=== PATIENT | female | born 1930 | race Caucasian/White ===

== ENCOUNTER 2016-02-25 12:05 | Observation (INO) | payer MEDICARE, OTHER ==
[~2016-02-25] VITALS: Ht 144.8 cm; Wt 56.0 kg
[~2016-02-25 12:05] MED LIST: ASP81 PO; BACTDS PO; CLON-379 PO; CLON1PAT17 TD; DOCU-159 PO; IBUP-1542 PO; LEVO75TA75 PO; LORA0.5T PO; LOSA100T7 PO; MOME13HF INH; NITR-58 PO; PHEN-537 PO; POLY17PO6 PO; SODI1TAB42 PO; ZOC20 PO
[2016-02-25] MEDS ORDERED: SOD CHLORIDE 0.9% 1,000 ML IV STA (12:52)
[2016-02-25 13:14] LABS: BASOPHILS % 0.3 % (0.0-2.0); EOSINOPHILS % 0.2 % (0.0-7.0); HEMATOCRIT 33.6 % (37.0-47.0); HEMOGLOBIN 11.1 g/dl (12.0-16.0); LYMPHOCYTES # 1.4 10^3/ul (0.8-2.9); LYMPHOCYTES % 24.6 % (15.0-51.0); MEAN CORPUSCULAR HEMOGLOBIN 28.8 pg (29.0-33.0); MEAN CORPUSCULAR HGB CONC 33.1 g/dl (32.0-37.0); MEAN PLATELET VOLUME 8.5 fl (7.4-10.4); MONOCYTE # 0.7 10^3/ul (0.3-0.9); MONOCYTES % 11.4 % (0.0-11.0); NEUTROPHIL # 3.7 10^3/ul (1.6-7.5); NEUTROPHILS % 63.5 % (39.0-77.0); PLATELET COUNT 226 10^3/UL (140-440); RED BLOOD COUNT 3.86 10^6/ul (4.20-5.40); RED CELL DISTRIBUTION WIDTH 13.6 % (11.5-14.5); UNCORRECTED WBC 5.8 10^3/ul (4.8-10.8); WHITE BLOOD COUNT 5.8 10^3/ul (4.8-10.8)
[2016-02-25 13:16] LABS: CONDITION 1
[2016-02-25 13:21] LABS: ALBUMIN 4.4 g/dl (3.3-4.9); CHLORIDE 99 mmol/L (97-110)
--- NOTE | 2016-02-25 13:21 | RADRPT ---
PROCEDURE: XR Chest 1 View. CLINICAL INDICATION: Shortness of breath, altered mental status. TECHNIQUE: AP view of the chest were obtained. COMPARISON: November 29, 2014 FINDINGS: Heart is large. Calcified atherosclerosis is noted in the aorta. Lung apices are obscured by the pa tient's overlying chin. No consolidations are identified. No pneumothorax is seen. Osseous structu res are osteopenic, but grossly intact. IMPRESSION: Cardiomegaly with calcified atherosclerosis in the aorta. Limited exam with the lung apices obscured by the patient's overlying chin. Repeat exam with the ch in elevated can be considered. Clear lungs. RPTAT: AA .Jose Mercado MD, MD Date Time Electronically viewed and signed by .Jose Mercado MD, on 02/25/2016 13:20 .P/
[2016-02-25 13:22] LABS: POTASSIUM 4.2 mmol/L (3.5-5.1); SODIUM 141 mmol/L (135-144)
[2016-02-25 13:22] LABS: Allen Test ACCEPTAB; Arterial Base Excess -0.4 mmol/L (-3.0-3); Arterial COHb 0.3 % (0.0-3.0); Arterial Fraction of Oxyhgb 99.1 % (93.0-99.0); Arterial HCO3 23.5 mmol/L (22.0-26.0); Arterial MetHb 0.1 % (0.0-1.5); Arterial Total Hemglobin 11.4 g/dl (12.0-18.0); MODE MASK - NRB
[2016-02-25 13:24] LABS: ALANINE AMINOTRANSFERASE 27 IU/L (13-69); ALBUMIN/GLOBULIN RATIO 1.22; ALKALINE PHOSPHATASE 87 IU/L (42-121); ANION GAP 18 (8-16); ASPARTATE AMINO TRANSFERASE 32 IU/L (15-46); BILIRUBIN,INDIRECT 0.2 mg/dl (0-1.1); BILIRUBIN,TOTAL 0.2 mg/dl (0.2-1.3); BLOOD UREA NITROGEN 17 mg/dl (7-20); CARBON DIOXIDE 28 mmol/L (21-31); CREATININE 1.17 mg/dl (0.44-1.00); GLUCOSE 90 mg/dl (70-220)
[2016-02-25 13:25] LABS: CALCIUM 9.3 mg/dl (8.4-10.2); LACTIC ACID 1.4 mmol/L (0.5-2.2)
[2016-02-25 13:26] LABS: ACETAMINOPHEN < 10.0 ug/ml (10.0-30.0); AMMONIA < 0 umol/l (9-30); ETHANOL < 10.0 mg/dl; SALICYLATE < 1.0 mg/dl (5.0-30.0)
[2016-02-25 13:36] LABS: TROPONIN-I 0.036 ng/ml (0.00-0.12)
[2016-02-25 13:41] LABS: INR 1.01; PARTIAL THROMBOPLASTIN TIME 25.3 Sec (25.0-35.0); PROTIME 13.3 Sec (12.2-14.2)
--- NOTE | 2016-02-25 13:48 | RADRPT ---
PROCEDURE: CT Brain without contrast. CLINICAL INDICATION: Neurologic deficit TECHNIQUE: A CT of the brain was performed on multidetector high-resolution CT scanner utilizing a xial sections from the skull base through the vertex without contrast. DOSE: CTDI = 44 mGy and the DLP = 720 mGy-cm. COMPARISON: Head CT 06/22/2014 FINDINGS: No acute intracranial hemorrhage, significant mass effect or midline shift. Patchy hypoattenuation o f the cerebral white matter is most consistent with mildchronic microvascular ischemic changes. 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 Atherosclerotic calcifications of the cavernous segments of the internal carotid arteries are seen. Stable ventricle size. Old right orbital fractures. No signific ant opacification of the visualized paranasal sinuses or mastoids. IMPRESSION: No significant interval change since 06/22/2014. No acute intracranial hemorrhage or significant mass effect. 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 RPTAT: AA .Nash Lilly MD, MD Date Time Electronically viewed and signed by .Nash Lilly MD, MD on 02/25/2016 13:48 .T/
--- NOTE | 2016-02-25 13:52 | ERA ---
ER Documentation Chief Complaint Date/Time DATE: 02/25/16 TIME: 1252 Chief Complaint Pt fainted and lost consciousness for 2 minutes per daughter, no trauma. HPI 85-year-old female brought to the emergency department by her family for evaluation of generalized weakness and syncopal episode. According to the family, patient was in her usual state of health until this morning at which time she had a generalized weakness. She passed out with no focal weakness noted. The paramedics were called to the home. They saw the patient and the patient was transported here to the emergency department. While in triage, the patient had another syncopal episode. At that time, she reported no headache, focal weakness numbness chest pain or palpitations. Upon arrival, she has no specific complaints ROS All systems reviewed and are negative except as per history of present illness. Medications Home Meds Active Scripts Sulfamethoxazole-Trimethoprim* (Bactrim* DS) 800-160 Mg Tab, 1 TAB PO BID, #14 TAB Prov:SERAFIN HUBER 05/16/15 Polyethylene Glycol* (Miralax*) 17 Gm Powd.pack, 17 GM PO DAILY, #7 Prov:SHILPAFLOR DO 05/16/15 Ibuprofen* (Motrin*) 600 Mg Tab, 600 MG PO Q6H Y for PAIN AND OR ELEVATED TEMP, #14 TAB Prov:FLOR MASSEY DO 05/16/15 Sodium Chloride* (Nacl*) 1 Gm Tab, 1 GM PO DAILY, #7 TAB Prov:NICK STEINER 12/03/14 Aspirin (Aspirin) 81 Mg Chew, 81 MG PO DAILY, #30 Prov:NICK STEINER 12/03/14 Levothyroxine Sodium* (Synthroid*) 75 Mcg Tab, 75 MCG PO DAILY@06, #30 Prov:MERY VELEZ NP 05/14/14 Reported Medications Clonidine Hcl Transdermal Patch* (Catapres-TTS 1*) 0.1 Mg/24 Hr/Patch.wk Patch.tdwk, 1 PATCH TD Q7D, PATCH 05/02/14 Lorazepam* (Lorazepam*) 0.5 Mg Tablet, 0.5 MG PO TID Y for ANXIETY, TAB 05/02/14 Clonidine Hcl* (Clonidine Hcl*) 0.1 Mg Tab, 0.1 MG PO Q8, TAB 05/02/14 Docusate Sodium* (Docusate Sodium*) 100 Mg Capsule, 100 MG PO BID, CAP 05/02/14 Losartan Potassium* (Losartan Potassium*) 100 Mg Tablet, 100 MG PO DAILY, TAB 03/16/14 Simvastatin (Simvastatin) 20 Mg Tablet, 20 MG PO HS, TAB 03/16/14 Mometasone-Formoterol (Dulera) 13 Gm Hfa.aer.ad, 1 PUFF INH BID 11/24/12 Discontinued Scripts Phenazopyridine Hcl* (Pyridium*) 100 Mg Tab, 100 MG PO TID Y for DYSURIA, #8 TAB Prov:FLOR MASSEY DO 05/16/15 Nitrofurantoin Monohyd Macrocr* (Macrobid*) 100 Mg Capsr, 100 MG PO BID for 7 Days, CAP Prov:FLOR MASSEY DO 05/16/15 Allergies Allergies: Coded Allergies: Penicillins (Verified Allergy, Severe, RASH ALL OVER BODY, 05/16/15) PMhx/Soc History of Surgery: Yes (cataract surg) Anesthesia Reaction: No Hx Neurological Disorder: No Hx Respiratory Disorders: Yes Hx Cardiac Disorders: Yes (hypertension, hyperlipidemia) Hx Psychiatric Problems: No Hx Miscellaneous Medical Probl: Yes (COPD, HTN, chronic diastolic dysfunctional /heart failure, hyponatremia) Hx Alcohol Use: No Hx Substance Use: No Hx Tobacco Use: No Smoking Status: Never smoker FmHx Noncontributory for the chief complaint with supportive family at the bedside Physical Exam Vitals Vital Signs Date Time Temp Pulse Resp B/P Pulse Ox O2 Delivery O2 Flow Rate FiO2 02/25/16 13:19 15.0 02/25/16 13:06 Non Rebreather 15 02/25/16 12:12 98.2 89 16 126/61 96 Physical Exam GENERAL: Patient is an ill-appearing elderly female. She had a syncopal episode upon arrival in the emergency department bed. HEENT: Pupils equal, round, and reactive to light. EOMI. There is no scleral icterus. NECK: C-spine is soft and supple, there is no meningismus. There is no cervical lymphadenopathy. LUNGS: Clear to auscultation bilaterally. There are no rales, wheezes or rhonchi. HEART: Regular rate and rhythm, no murmurs, clicks, rubs or gallops. There is a murmur appreciated on the precordium ABDOMEN: Soft, non-tender, non-distended. There are bowel sounds in all four quadrants. No rebound or guarding. EXTREMITIES: There is no peripheral cyanosis or edema. No focal swelling or erythema. NEURO: The patient moves all four extremities with 5/5 strength. Cranial nerves II - XII are intact. Normal gait. Alert and oriented SKIN: There is no apparent rash or petechiae. HEME/LYMPHATIC: There is no evidence of excessive bruising or lymphedema. PSYCHIATRIC: The patient does not appear anxious or depressed. Result Diagram: 02/25/16 1200 02/25/16 1200 Results 24 hrs Laboratory Tests Test 02/25/16 12:00 02/25/16 12:52 02/25/16 12:53 02/25/16 13:15 Acetaminophen Level < 10.0ug/ml Alanine Aminotransferase (ALT/SGPT) 27IU/L Albumin 4.4g/dl Albumin/Globulin Ratio 1.22 Alkaline Phosphatase 87IU/L Ammonia < 0umol/l Anion Gap 18 Aspartate Amino Transf (AST/SGOT) 32IU/L Basophils # 0.010^3/ul Basophils % 0.3% Blood Morphology Comment Blood Urea Nitrogen 17mg/dl Calcium Level 9.3mg/dl Carbon Dioxide Level 28mmol/L Chloride Level 99mmol/L Creatinine 1.17mg/dl Direct Bilirubin 0.00mg/dl Eosinophils # 0.010^3/ul Eosinophils % 0.2% Ethyl Alcohol Level < 10.0mg/dl Free Thyroxine Index Pending Globulin 3.60g/dl Glucose Level 90mg/dl Hematocrit 33.6% Hemoglobin 11.1g/dl Indirect Bilirubin 0.2mg/dl Lactic Acid Level 1.4mmol/L Lymphocytes # 1.410^3/ul Lymphocytes % 24.6% Mean Corpuscular Hemoglobin 28.8pg Mean Corpuscular Hemoglobin Concent 33.1g/dl Mean Corpuscular Volume 87.0fl Mean Platelet Volume 8.5fl Monocytes # 0.710^3/ul Monocytes % 11.4% Neutrophils # 3.710^3/ul Neutrophils % 63.5% Nucleated Red Blood Cells # 0.010^3/ul Nucleated Red Blood Cells % 0.0/100WBC Platelet Count 09847^3/UL Potassium Level 4.2mmol/L Red Blood Count 3.8610^6/ul Red Cell Distribution Width 13.6% Salicylates Level < 1.0mg/dl Sodium Level 141mmol/L Thyroxine (T4) Pending Total Bilirubin 0.2mg/dl Total Protein 8.0g/dl Triiodothyronine (T3) Uptake Pending Troponin I 0.036ng/ml White Blood Count 5.810^3/ul Arterial Blood HCO3 23.5mmol/L Arterial Blood Base Excess -0.4mmol/L Arterial Blood Oxygen Saturation 99.5mmHG Palmer Test ACCEPTAB Arterial Blood Gas Puncture Site Right Radial Arterial Blood Carboxyhemoglobin 0.3% Arterial Blood Date Drawn 02/25/2016 1:10:28 PM Arterial Blood Methemoglobin 0.1% Arterial Blood pCO2 (Temp correct) 35.9mmhg Arterial Blood pH (Temp corrected) 7.434 Arterial Blood pO2 (Temp corrected) 434.1mmHG Blood Gas A-a O2 Differential 243.0mmHg Blood Gas Modality MASK - NRB Blood Gas Notified Time 02/25/2016 1:22:04 PM Blood Gas Notified Whom JLD Blood Gas Specimen Source Blood arterial Blood Gas Temperature 37.0C FiO2 100.0% Oxyhemoglobin Percent 99.1% Total Hemoglobin 11.4g/dl Bedside Glucose 98mg/dL Activated Partial Thromboplast Time 25.3Sec INR International Normalized Ratio 1.01 Prothrombin Time 13.3Sec Prothrombin Time Ratio 1.0 Current Medications Medications (Trade) Dose Ordered Sig/Laura Route PRN Reason Start Time Stop Time Status Last Admin Dose Admin Sodium Chloride (NS) 1,000 ml @ 1,000 mls/hr Q1H STAT IV 02/25/16 12:52 02/25/16 13:51 DC 02/25/16 13:12 Procedures/MDM Patient was taken to a room, seen and evaluated. Comfort measures were initiated. I immediately remove the clonidine patch Diagnostic tests were ordered and reviewed. 3 LEAD RHYTHM STRIP: Normal sinus rhythm without ectopy EK lead EKG reviewed by myself: Normal Sinus Rhythm Left axis deviation Nonspecific ST and T waves without ST elevation Impression: Nonspecific EKG RADIOLOGY: reviewed with the radiologist CONSULTATION: Dr. Moe was notified for admission REEVALUATION: Patient remained hemodynamically stable and neurologically nonfocal in the emergency department MEDICAL DECISION MAKING: Patient presents after a syncopal episode with a second event in the emergency department Differential diagnosis considered focused on cardiac, neurologic, thromboembolic and other significant concerns for syncope. Diagnostic workup was appreciated. At this time, the actual cause of her syncope is still somewhat unclear. She shows no evidence of severe anemia, no evidence of significant obvious ischemia and no evidence of obvious infection with a urinalysis pending. However, given her age, she will be admitted to the hospital for further observation to further evaluate possible cardiac causes of syncope evaluate her medications further to see if these are causing syncope and further treatment per the admitting team. Departure Diagnosis: Primary Impression: Syncope Condition: Jad VIVIANEDYTA Feb 25, 2016 13:52
[2016-02-25 14:30] LABS: T3 UPTAKE 34.1 % (23.5-40.5)
[2016-02-25] MEDS ORDERED: ACETAMINOPHEN 325 MG TAB PO PRN (16:30)
[2016-02-25] MEDS ORDERED: IBUPROFEN 600 MG TAB PO PRN (16:30)
[2016-02-25] MEDS ORDERED: morphine 2 MG INJ IV PRN (16:30)
[2016-02-25] MEDS ORDERED: LORAZEPAM 0.5 MG TAB PO PRN (16:30)
[2016-02-25] MEDS ORDERED: NACL 0.9% 3 ML SYG IV SCH (16:30)
[2016-02-25] MEDS ORDERED: ONDANSETRON 4 MG INJ IV PRN (16:30)
[2016-02-25] MEDS ORDERED: CLONIDINE 0.1 MG/24 HR PATCH TRANSDERM SCH (16:30)
--- NOTE | 2016-02-25 17:03 | RADRPT ---
PROCEDURE: US carotid arteries. CLINICAL INDICATION: Dizziness. Syncope. TECHNIQUE: Multiple sonographic images of the carotid arteries and vertebral arteries were obtaine d utilizing lange scale, duplex, and color-flow imaging. The images were reviewed on a PACS workstati on. COMPARISON: No prior studies are available for comparison. FINDINGS: Evaluation of the right carotid bifurcation region reveals mild atherosclerotic disease. Evaluation of the left carotid bifurcation region reveals mild atherosclerotic disease. There is antegrade flow within the vertebral arteries bilaterally. RIGHT CAROTID MEASUREMENTS: Common Carotid [id number] (cm/sec) Internal Carotid Artery 40 (cm/sec) External Carotid Artery 67 (cm/sec) Vertebral Artery 48 (cm/sec) Internal Carotid/Common Carotid0.7 LEFT CAROTID MEASUREMENTS: Common Carotid [id number] (cm/sec) Internal Carotid Artery 60 (cm/sec) External Carotid Artery 61 (cm/sec) Vertebral Artery 30 (cm/sec) Internal Carotid/Common Carotid1.2 Validated velocity measurements with angiographic measurements. Velocity criteria are extrapolated f rom diameter data as defined by the Society of Radiologists in Ultrasound Consensus Conference. Radi ology 2003; 229;340-346. IMPRESSION: 1. Less than 50% stenosis bilaterally in the internal carotid arteries. 2. Normal antegrade flow in the vertebral arteries bilaterally. RPTAT: QQ SRU Consensus Conference Criteria for the Diagnosis of Carotid Artery Stenosis* Degree of Stenosis, % ICA PSV, cm/sec Plaque Estimate, % ICA/CCA PSV Ratio Normal <125 None <2.0 <50 <125 <50 <2.0 50 69 125-230 >50 2.0-4.0 >70 but less than near occlusion >230 >50 <4.0 Near occlusion High, low, or undetectable Visible Variable Total occlusion Undetectable Visible, no detectable lumen Not applicable *Cartoid artery stenosis: lange-scale and Doppler US diagnosis. Society of Radiologists in Ultrasound Consensus Conference. Radiology 2003; 229: 340-346 .Chava Blanco MD, MD Date Time Electronically viewed and signed by .Chava Blanco MD, on 02/25/2016 17:03 .R/
[2016-02-25 17:18] VITALS: TEMP 98.2
[2016-02-25] MEDS: DOCUSATE SODIUM 100 MG CAP PO SCH (21:00)
[2016-02-25] MEDS: FAMOTIDINE 20 MG INJ IV SCH (22:15)
[2016-02-25] MEDS: TRIMETHOPRIM/SULFAMETHOX (DS) TAB PO SCH (22:16)
[2016-02-26] VITALS (7 sets, daily range): BP systolic 109–144; BP diastolic 55–75; PULSE 59–70; RESP 18; Ht 144.8 cm; Wt 56.0 kg
[2016-02-26] MEDS ORDERED: LEVOTHYROXINE 75 MCG TAB PO SCH (06:00)
[2016-02-26 07:35] LABS: HEMATOCRIT 28.7 % (37.0-47.0); HEMOGLOBIN 9.7 g/dl (12.0-16.0); MEAN CORPUSCULAR HEMOGLOBIN 29.3 pg (29.0-33.0); MEAN CORPUSCULAR HGB CONC 33.7 g/dl (32.0-37.0); MEAN PLATELET VOLUME 8.8 fl (7.4-10.4); PLATELET COUNT 172 10^3/UL (140-440); RED CELL DISTRIBUTION WIDTH 13.8 % (11.5-14.5)
[2016-02-26 08:07] LABS: CONDITION 1; LH ANALYZER COMMENTS 1; SUSPECT 1
[2016-02-26 08:15] LABS: ALBUMIN 3.4 g/dl (3.3-4.9); POTASSIUM 3.6 mmol/L (3.5-5.1)
[2016-02-26 08:17] LABS: CREATININE 1.07 mg/dl (0.44-1.00)
[2016-02-26 08:18] LABS: ALBUMIN/GLOBULIN RATIO 1.17; TOTAL PROTEIN 6.3 g/dl (6.1-8.1)
[2016-02-26 08:19] LABS: CALCIUM 7.7 mg/dl (8.4-10.2)
[2016-02-26] MEDS ORDERED: ASPIRIN 81 MG TAB PO SCH (09:00)
[2016-02-26] MEDS ORDERED: SODIUM CHLORIDE 1 GM TAB PO SCH (09:00)
[2016-02-26] MEDS ORDERED: POLYETHYLENE GLYCOL 17 GM PACKET PO SCH (09:00)
[2016-02-26] MEDS ORDERED: LOSARTAN 50 MG TAB PO SCH (09:00)
[2016-02-26] MEDS ORDERED: ENOXAPARIN 30 MG/0.3 ML SYG SC SCH (09:00)
[2016-02-26] MEDS: DOCUSATE SODIUM 100 MG CAP PO SCH (10:22)
[2016-02-26] MEDS: FAMOTIDINE 20 MG INJ IV SCH (10:22)
[2016-02-26] MEDS: TRIMETHOPRIM/SULFAMETHOX (DS) TAB PO SCH (10:22)
[2016-02-26 10:45] LABS: LYMPHOCYTES # 0.8 10^3/ul (0.8-2.9); MONOCYTE # 0.4 10^3/ul (0.3-0.9); NEUTROPHIL # 1.8 10^3/ul (1.6-7.5)
--- NOTE | 2016-02-26 12:24 | HP ---
Date/Time of Note Date/Time of Note DATE: 02/26/16 TIME: 12:21 Assessment/Plan VTE Prophylaxis VTE Prophylaxis Intervention: LMWH Lines/Catheters IV Catheter Type (from Nrs): Saline Lock Urinary Cath still in place: Yes Reason Cath still needed: skin wounds contaminated by urine, other (indicate) Assessment/Plan Chief Complaint/Hosp Course 1) syncope - monitor on telemetry - head CT and carotid doppler negative - discharge home Problems: HPI/ROS Admit Date/Time Admit Date/Time Feb 25, 2016 at 13:50 Hx of Present Illness Patient with hypertension, hypercholesterolemia, hypothyroidism comes in after having a syncopal episode that occurred right after the patient finished eating. The episodes lasts only a minute and then the patient was back at baseline. Patient had another episode later on in the emergency room. PMH/Family/Social Past Medical History Medical History: high cholesterol, hypertension, hypothyroid Social History Alcohol Use: none Smoking Status: Never smoker Exam/Review of Systems Vital Signs Vitals Vital Signs Date Time Temp Pulse Resp B/P Pulse Ox O2 Delivery O2 Flow Rate FiO2 02/26/16 12:17 70 02/26/16 11:58 98.6 18 134/75 100 02/26/16 00:30 Nasal Cannula 2.0 Intake and Output 02/25/16 02/25/16 02/26/16 15:00 23:00 07:00 Intake Total 200 ml Balance 200 ml Exam Constitutional: alert, well developed Head: atraumatic, normocephalic Neck: supple Respiratory: clear to auscultation Cardiovascular: regular rate and rhythm Gastrointestinal: non-tender, soft Extremities: normal pulses Labs Result Diagram: 02/26/16 0621 02/26/16 06 Medications Medications Current Medications Ondansetron HCl (Zofran Inj) 4 mg Q6H PRN IV NAUSEA AND/OR VOMITING; Start 02/24 at 16:30 Acetaminophen (Tylenol Tab) 650 mg Q6H PRN PO PAIN LEVEL 1-3 OR FEVER; Start at 16:30 Morphine Sulfate (morphine) 2 mg Q4H PRN IV PAIN LEVEL 7-10; Start 02/25/16 at 16:30 Famotidine (Pepcid Iv) 20 mg Q12 IV Last administered on 02/26/16t 10:22; Admin Dose 20 MG; Start 02/25/16 at 21:00 Enoxaparin Sodium (Lovenox) 30 mg DAILY SC Last administered on 02/26/16 10:40 ; Admin Dose 30 MG; Start 02/26/16 at 09:00 Aspirin (Aspirin) 81 mg DAILY PO Last administered on 02/26/16 10:22; Admin Dose 81 MG; Start 02/26/16 at 09:00 Clonidine HCl (Catapres-Tts 1 Patch) 1 patch Q7D TRANSDERM Last administered on 02/25/16 18:17; Admin Dose 1 PATCH; Start 02/25/16 at 16:30 Clonidine (Catapres) 0.1 mg Q8 PO Last administered on 02/25/16 22:16; Admin Dose 0.1 MG; Start 02/25/16 at 22:00 Docusate Sodium (Colace) 100 mg BID PO Last administered on 02/26/16 10:22; Admin Dose 100 MG; Start 02/25/16 at 21:00 Ibuprofen (Motrin) 600 mg Q6H PRN PO PAIN AND OR ELEVATED TEMP; Start 02/25/16 at 16:30 Levothyroxine Sodium (Synthroid) 75 mcg DAILY@06 PO Last administered on 07:08; Admin Dose 75 MCG; Start 02/26/16 at 06:00 Lorazepam (Ativan) 0.5 mg TID PRN PO ANXIETY; Start 02/25/16 at 16:30 Losartan Potassium (Cozaar) 100 mg DAILY PO Last administered on 02/26/16 10:23 ; Admin Dose 100 MG; Start 02/26/16 at 09:00 Polyethylene Glycol (Miralax) 17 gm DAILY PO Last administered on 02/26/16 10: 23; Admin Dose 17 GM; Start 02/26/16 at 09:00 Sodium Chloride (Nacl) 1 gm DAILY PO Last administered on 02/26/16 10:22; Admin Dose 1 GM; Start 02/26/16 at 09:00 Trimethoprim/ Sulfamethoxazole (Bactrim (Ds)) 1 tab BID PO Last administered on 02/26/16 10:22; Admin Dose 1 TAB; Start 02/25/16 at 21:00 JAXSON GARCIA Feb 26, 2016 12:24
--- NOTE | 2016-02-26 12:26 | DS ---
Date/Time of Note Date/Time of Note DATE: 02/26/16 TIME: 12:24 Discharge Summary Admission/Discharge Info Admit Date/Time Feb 25, 2016 at 13:50 Discharge Date/Time 02/26/16 Final Diagnosis 1) vasovagal syncope Patient Condition: Fair Hx of Present Illness Patient with hypertension, hypercholesterolemia, hypothyroidism comes in after having a syncopal episode that occurred right after the patient finished eating. The episodes lasts only a minute and then the patient was back at baseline. Patient had another episode later on in the emergency room. Hospital Course Patient comes in with syncope. She was monitored on telemetry. Head CT and carotid doppler negative. Patient is stable and so was sent home. 1) syncope - monitor on telemetry - head CT and carotid doppler negative - discharge home Home Meds Active Scripts Sulfamethoxazole-Trimethoprim* (Bactrim* DS) 800-160 Mg Tab, 1 TAB PO BID, #14 TAB Prov:SERAFIN HUBER 05/16/15 Polyethylene Glycol* (Miralax*) 17 Gm Powd.pack, 17 GM PO DAILY, #7 Prov:FLOR MASSEY DO 05/16/15 Ibuprofen* (Motrin*) 600 Mg Tab, 600 MG PO Q6H Y for PAIN AND OR ELEVATED TEMP, #14 TAB Prov:FLOR MASSEY DO 16 Sodium Chloride* (Nacl*) 1 Gm Tab, 1 GM PO DAILY, #7 TAB Prov:NICK STEINER 12/03/14 Aspirin (Aspirin) 81 Mg Chew, 81 MG PO DAILY, #30 Prov:NICK STEINER 12/03/14 Levothyroxine Sodium* (Synthroid*) 75 Mcg Tab, 75 MCG PO DAILY@06, #30 Prov:MERY VELEZ NP 05/14/14 Reported Medications Clonidine Hcl Transdermal Patch* (Catapres-TTS 1*) 0.1 Mg/24 Hr/Patch.wk Patch.tdwk, 1 PATCH TD Q7D, PATCH 05/02/14 Lorazepam* (Lorazepam*) 0.5 Mg Tablet, 0.5 MG PO TID Y for ANXIETY, TAB 05/02/14 Clonidine Hcl* (Clonidine Hcl*) 0.1 Mg Tab, 0.1 MG PO Q8, TAB 05/02/14 Docusate Sodium* (Docusate Sodium*) 100 Mg Capsule, 100 MG PO BID, CAP 05/02/14 Losartan Potassium* (Losartan Potassium*) 100 Mg Tablet, 100 MG PO DAILY, TAB 03/16/14 Simvastatin (Simvastatin) 20 Mg Tablet, 20 MG PO HS, TAB 03/16/14 Mometasone-Formoterol (Dulera) 13 Gm Hfa.aer.ad, 1 PUFF INH BID 11/24/12 Discontinued Scripts Phenazopyridine Hcl* (Pyridium*) 100 Mg Tab, 100 MG PO TID Y for DYSURIA, #8 TAB Prov:FLOR MASSEY DO 05/16/15 Nitrofurantoin Monohyd Macrocr* (Macrobid*) 100 Mg Capsr, 100 MG PO BID for 7 Days, CAP Prov:FLOR MASSEY DO 05/16/15 Pending Labs Laboratory Tests Test 02/25/16 12:52 02/25/16 12:53 02/25/16 13:15 02/25/16 14:50 Arterial Blood HCO3 23.5mmol/L (22.0-26.0) Arterial Blood Base Excess -0.4mmol/L (-3.0-3) Arterial Blood Oxygen Saturation 99.5mmHG (95.0-100.0) Palmer Test ACCEPTAB Arterial Blood Gas Puncture Site Right Radial Arterial Blood Carboxyhemoglobin 0.3% (0.0-3.0) Arterial Blood Date Drawn 02/25/2016 1:10:28 PM Arterial Blood Methemoglobin 0.1% (0.0-1.5) Arterial Blood pCO2 (Temp correct) 35.9mmhg (35-45) Arterial Blood pH (Temp corrected) 7.434 (7.350-7.450) Arterial Blood pO2 (Temp corrected) 434.1mmHG (80-90.0) Blood Gas A-a O2 Differential 243.0mmHg (7.0-24.0) Blood Gas Modality MASK - NRB Blood Gas Notified Time 02/25/2016 1:22:04 PM Blood Gas Notified Whom JLD Blood Gas Specimen Source Blood arterial Blood Gas Temperature 37.0C FiO2 100.0% Oxyhemoglobin Percent 99.1% (93.0-99.0) Total Hemoglobin 11.4g/dl (12.0-18.0) Bedside Glucose 98mg/dL (70-220) Activated Partial Thromboplast Time 25.3Sec (25.0-35.0) INR International Normalized Ratio 1.01 Prothrombin Time 13.3Sec (12.2-14.2) Prothrombin Time Ratio 1.0 Lactic Acid Level 0.9mmol/L (0.5-2.2) Test 02/26/16 06:21 Alanine Aminotransferase (ALT/SGPT) 29IU/L (13-69) Albumin 3.4g/dl (3.3-4.9) Albumin/Globulin Ratio 1.17 Alkaline Phosphatase 57IU/L (42-121) Anion Gap 18 (8-16) Aspartate Amino Transf (AST/SGOT) 43IU/L (15-46) Basophils # 10^3/ul (0.0-0.1) Basophils % % (0.0-2.0) Blood Urea Nitrogen 18mg/dl (7-20) Calcium Level 7.7mg/dl (8.4-10.2) Carbon Dioxide Level 22mmol/L (21-31) Chloride Level 102mmol/L (97-110) Creatinine 1.07mg/dl (0.44-1.00) Differential Comment MANUAL DIFF Direct Bilirubin 0.00mg/dl (0.00-0.20) Eosinophils # 10^3/ul (0.0-0.5) Eosinophils % % (0.0-7.0) Globulin 2.90g/dl (1.3-3.2) Glucose Level 99mg/dl (70-220) Hematocrit 28.7% (37.0-47.0) Hemoglobin 9.7g/dl (12.0-16.0) Indirect Bilirubin 0.0mg/dl (0-1.1) Lymphocytes # 0.810^3/ul (0.8-2.9) Lymphocytes % 28.0% (15.0-51.0) Mean Corpuscular Hemoglobin 29.3pg (29.0-33.0) Mean Corpuscular Hemoglobin Concent 33.7g/dl (32.0-37.0) Mean Corpuscular Volume 87.0fl (82.0-101.0) Mean Platelet Volume 8.8fl (7.4-10.4) Monocytes # 0.410^3/ul (0.3-0.9) Monocytes % 13.0% (0.0-11.0) Neutrophils # 1.810^3/ul (1.6-7.5) Neutrophils % 59.0% (39.0-77.0) Nucleated Red Blood Cells # 10^3/ul (0.0-0.0) Nucleated Red Blood Cells % /100WBC (0.0-0.0) Platelet Count 27268^3/UL (140-440) Potassium Level 3.6mmol/L (3.5-5.1) Red Blood Count 3.3010^6/ul (4.20-5.40) Red Cell Distribution Width 13.8% (11.5-14.5) Sodium Level 138mmol/L (135-144) Total Bilirubin 0.0mg/dl (0.2-1.3) Total Protein 6.3g/dl (6.1-8.1) White Blood Count 3.010^3/ul (4.8-10.8) JAXSON GARCIA Feb 26, 2016 12:26
== END 2016-02-26 14:00 | disposition home or self-care (01) ==
LOC: E/R 12:05 → TEL 13:50 → E/R 15:21 → TEL 23:52
PROVIDERS: ADMIT Internal Medicine; ATTEND Internal Medicine
DX: R55 Syncope and collapse (principal); I10 Essential (primary) hypertension; E03.9 Hypothyroidism, unspecified; E78.00 Pure hypercholesterolemia, unspecified
CPT/HCPCS: 36600; 70450; 71010; 80053; 82140; 82803; 82962; 83605; 84436; 84479; 84484; 85025; 85610; 85730; 87040; 93005; 93880; G0378; G0478; J1650; J7030; 80306

== ENCOUNTER 2016-04-19 13:42 | Inpatient (IN) | payer MEDICARE, OTHER ==
[~2016-04-19] VITALS: Ht 142.2 cm; Wt 54.9 kg
[~2016-04-19 13:42] MED LIST changes: -ASP81 PO; +ASPI81TA3 PO; -LEVO75TA75 PO; -NITR-58 PO; -PHEN-537 PO; +SYN75 PO
[2016-04-19] MEDS ORDERED: ASPIRIN 325 MG TAB PO STA (17:38)
--- NOTE | 2016-04-19 17:40 | ERA ---
ER Documentation Chief Complaint Date/Time DATE: 04/19/16 TIME: 17:40 Chief Complaint CP FOR 1 MONTH. HX OF CARDIAC.MILD SOB, SENT BY PMD FOR EVAL. GEN WEAKNESS HPI 85-year-old female with a history of coronary artery disease, congestive heart failure, hypertension, hyperlipidemia, hypothyroidism and asthma/COPD refer to the ED by her PMD Dr. Horan for evaluation of chest pain. Patient was seen in the office today for regular follow-up, complained of chest pain and had an elevated troponin. History is supplemented by her daughter. Patient with a long history of intermittent episodes of sharp and achy, nonradiating, mild to moderate chest pain now worse over the last 2 weeks. Pain is exacerbated by coughing and movement. Denies shortness of breath, orthopnea, exertional dyspnea or PND. No abdominal pain, nausea, vomiting or diaphoresis. No relieving or exacerbating factors. No URI symptoms or rhinorrhea. No leg pain or swelling. No fevers or chills. Patient was recently admitted for syncope, February 2016 and workup was unremarkable. ROS All systems reviewed and are negative except as per history of present illness. Medications Home Meds Active Scripts Aspirin (Aspirin) 81 Mg Chew, 81 MG PO DAILY, #30 Prov:NICK STEINER 12/03/14 Levothyroxine Sodium* (Synthroid*) 75 Mcg Tab, 75 MCG PO DAILY@06, #30 Prov:MERY VELEZ NP 05/14/14 Reported Medications Clonidine Hcl Transdermal Patch* (Catapres-TTS 1*) 0.1 Mg/24 Hr/Patch.wk Patch.tdwk, 1 PATCH TD Q7D, PATCH 05/02/14 Clonidine Hcl* (Clonidine Hcl*) 0.1 Mg Tab, 0.1 MG PO Q8, TAB 05/02/14 Docusate Sodium* (Docusate Sodium*) 100 Mg Capsule, 100 MG PO BID, CAP 05/02/14 Losartan Potassium* (Losartan Potassium*) 100 Mg Tablet, 100 MG PO DAILY, TAB 03/16/14 Simvastatin (Simvastatin) 20 Mg Tablet, 20 MG PO HS, TAB 03/16/14 Mometasone-Formoterol (Dulera) 13 Gm Hfa.aer.ad, 1 PUFF INH BID 11/24/12 Discontinued Reported Medications Lorazepam* (Lorazepam*) 0.5 Mg Tablet, 0.5 MG PO TID Y for ANXIETY, TAB 05/02/14 Discontinued Scripts Sulfamethoxazole-Trimethoprim* (Bactrim* DS) 800-160 Mg Tab, 1 TAB PO BID, #14 TAB Prov:SERAFIN HUBER 05/16/15 Polyethylene Glycol* (Miralax*) 17 Gm Powd.pack, 17 GM PO DAILY, #7 Prov:FLOR MASSEY DO 05/16/15 Ibuprofen* (Motrin*) 600 Mg Tab, 600 MG PO Q6H Y for PAIN AND OR ELEVATED TEMP, #14 TAB Prov:GREENFLOR DO 05/16/15 Sodium Chloride* (Nacl*) 1 Gm Tab, 1 GM PO DAILY, #7 TAB Prov:OBDULIANICK 12/03/14 Allergies Allergies: Coded Allergies: Penicillins (Verified Allergy, Severe, RASH ALL OVER BODY, 04/19/16) PMhx/Soc Reviewed in chart. As per HPI. Anesthesia Reaction: No Hx Neurological Disorder: Yes Hx Respiratory Disorders: Yes (COPD) Hx Cardiac Disorders: Yes (HTN) Hx Psychiatric Problems: No Hx Miscellaneous Medical Probl: Yes (HIGH CHOLESTEROL, THYROID) Hx Alcohol Use: No Hx Substance Use: No Hx Tobacco Use: No Smoking Status: Never smoker FmHx No stroke or cancer. Physical Exam Vitals Vital Signs Date Time Temp Pulse Resp B/P Pulse Ox O2 Delivery O2 Flow Rate FiO2 04/19/16 18:37 98.0 65 16 158/67 100 Room Air 04/19/16 17:53 69 18 181/73 100 Room Air 04/19/16 17:51 Nasal Cannula 2 04/19/16 13:51 98.4 71 20 190/84 98 Physical Exam Const: Alert, elderly, no acute distress Head: Atraumatic Eyes: Normal Conjunctiva ENT: Normal External Ears, Nose and Mouth. Neck: Full range of motion. Nontender. No JVD. Resp: Breath sounds are equal and clear to auscultation bilaterally Cardio: Regular rate and rhythm, no murmurs. Mild, reproducible chest wall tenderness. Abd: Soft, non tender, non distended. Normal bowel sounds Skin: No petechiae or rashes Back: No midline or flank tenderness Ext: No cyanosis, or edema Neur: Awake and alert. No focal deficit observed. Psych: Normal Mood and Affect Result Diagram: 04/19/16 1749 04/19/16 1749 Results 24 hrs Laboratory Tests Test 04/19/16 17:49 Activated Partial Thromboplast Time 24.6Sec Alanine Aminotransferase (ALT/SGPT) 32IU/L Albumin 4.3g/dl Albumin/Globulin Ratio 1.53 Alkaline Phosphatase 92IU/L Anion Gap 17 Aspartate Amino Transf (AST/SGOT) 34IU/L Basophils # 0.010^3/ul Basophils % 0.5% Blood Urea Nitrogen 21mg/dl Calcium Level 9.2mg/dl Carbon Dioxide Level 29mmol/L Chloride Level 101mmol/L Creatinine 0.86mg/dl Direct Bilirubin 0.00mg/dl Eosinophils # 0.210^3/ul Eosinophils % 2.5% Globulin 2.80g/dl Glucose Level 82mg/dl Hematocrit 33.2% Hemoglobin 10.7g/dl INR International Normalized Ratio 1.00 Indirect Bilirubin 0.1mg/dl Lymphocytes # 2.510^3/ul Lymphocytes % 39.0% Mean Corpuscular Hemoglobin 29.6pg Mean Corpuscular Hemoglobin Concent 32.2g/dl Mean Corpuscular Volume 92.0fl Mean Platelet Volume 10.1fl Monocytes # 0.410^3/ul Monocytes % 6.0% Neutrophils # 3.410^3/ul Neutrophils % 51.8% Nucleated Red Blood Cells # 0.010^3/ul Nucleated Red Blood Cells % 0.0/100WBC Platelet Count 43996^3/UL Potassium Level 4.5mmol/L Prothrombin Time 13.2Sec Prothrombin Time Ratio 1.0 Red Blood Count 3.6110^6/ul Red Cell Distribution Width 13.3% Sodium Level 142mmol/L Total Bilirubin 0.1mg/dl Total Protein 7.1g/dl Troponin I 0.016ng/ml White Blood Count 6.510^3/ul Current Medications Medications (Trade) Dose Ordered Sig/Laura Route PRN Reason Start Time Stop Time Status Last Admin Dose Admin Aspirin (Aspirin) 325 mg ONCE STAT PO 04/19/16 17:38 04/19/16 17:40 DC 04/19/16 17:52 Ondansetron HCl (Zofran Inj) 4 mg ER BRIDGE PRN IV NAUSEA AND/OR VOMITING 04/19/16 19:00 04/20/16 18:59 Acetaminophen (Tylenol Tab) 650 mg ER BRIDGE PRN PO MILD PAIN/FEVER 04/19/16 19:00 04/20/16 18:59 RHYTHM STRIP INTERPRETATION: Time: 18:00. Sinus rhythm. Ventricular rate 63. No ectopy. Indication: Chest pain. EKG: TIME: 13:57. Sinus rhythm. Ventricular rate 68. Normal PA and QRS. No acute ST segment elevation or depression. No ectopy. RSR" in V1 suggestive of right ventricular conduction delay. EP Interpretation: Abnormal EKG. unchanged from February 25, 2016 IMAGING: PROCEDURE: XR Chest. CLINICAL INDICATION: Chest pain. TECHNIQUE: Single frontal view of the chest was obtained COMPARISON: 02/25/2016. FINDINGS: Cardiomegaly. The lungs are clear. There is no pleural effusion or pneumothorax. IMPRESSION: No acute disease. RPTAT: [facility] Physician Clarence Date Time Electronically viewed and signed by Physician Clarence on 04/19/2016 18:13 RS/ Procedures/MDM DOCUMENTS REVIEWED: ED nurse, prior ED, prior records, clinic note MEDICAL DECISION MAKIN-year-old female with a history of coronary artery disease, congestive heart failure hypertension, hyperlipidemia, hypothyroidism and asthma/COPD refer to the ED by her PMD Dr. Horan for evaluation of chest pain. Patient with a several week history of worsening chest pain. No acute ischemic EKG changes are elevated troponin in the ED but apparently had an elevated troponin in the office. No radiographic evidence of pneumonia or pneumothorax. Doubt aortic dissection. Low risk for pulmonary embolism. Discussed with PMD, Dr. Horan who requests the patient be admitted for chest pain workup. Admit to telemetry observation for further risk stratification, evaluation and management. Counseled patient and family regarding diagnosis, diagnostic results and plan for admission. CALLS/CONSULTS: Time 17:45, Dr. Horan, requested admission for chest pain, rule out ACS CALLS/CONSULTS: Time 18:40, Dr. Melonie Moe, Recommends telemetry observation. PATIENT CARE TRANSITIONED: Time: 18: 50, Dr. Melonie Moe. Departure Diagnosis: Primary Impression: Chest pain Qualified Code: R07.9 - Chest pain, unspecified type Additional Impressions: Hypertension Qualified Code: I10 - Essential hypertension Hyperlipidemia Qualified Code: E78.5 - Hyperlipidemia, unspecified hyperlipidemia type Condition: Serious PIERCE HOLBROOK MD Apr 19, 2016 17:40
[2016-04-19 17:53] LABS: ADD SCAN DIFF NO
[2016-04-19 17:54] LABS: BASOPHILS % 0.5 % (0.0-2.0); EOSINOPHILS # 0.2 10^3/ul (0.0-0.5); EOSINOPHILS % 2.5 % (0.0-7.0); HEMATOCRIT 33.2 % (37.0-47.0); HEMOGLOBIN 10.7 g/dl (12.0-16.0); LYMPHOCYTES # 2.5 10^3/ul (0.8-2.9); MEAN CORPUSCULAR HEMOGLOBIN 29.6 pg (29.0-33.0); MEAN CORPUSCULAR HGB CONC 32.2 g/dl (32.0-37.0); MEAN PLATELET VOLUME 10.1 fl (7.4-10.4); MONOCYTE # 0.4 10^3/ul (0.3-0.9); NEUTROPHIL # 3.4 10^3/ul (1.6-7.5); NEUTROPHILS % 51.8 % (39.0-77.0); PLATELET COUNT 249 10^3/UL (140-415); RED BLOOD COUNT 3.61 10^6/ul (4.20-5.40); RED CELL DISTRIBUTION WIDTH 13.3 % (11.5-14.5); WHITE BLOOD COUNT 6.5 10^3/ul (4.8-10.8)
[2016-04-19 18:04] LABS: PROTIME 13.2 Sec (12.2-14.2)
[2016-04-19 18:05] LABS: ALBUMIN 4.3 g/dl (3.3-4.9); PARTIAL THROMBOPLASTIN TIME 24.6 Sec (25.0-35.0)
[2016-04-19 18:06] LABS: POTASSIUM 4.5 mmol/L (3.5-5.1)
[2016-04-19 18:08] LABS: ALBUMIN/GLOBULIN RATIO 1.53; BILIRUBIN,INDIRECT 0.1 mg/dl (0-1.1); BILIRUBIN,TOTAL 0.1 mg/dl (0.2-1.3); CREATININE 0.86 mg/dl (0.44-1.00); TOTAL PROTEIN 7.1 g/dl (6.1-8.1)
[2016-04-19 18:09] LABS: CALCIUM 9.2 mg/dl (8.4-10.2)
--- NOTE | 2016-04-19 18:13 | RADRPT ---
PROCEDURE: XR Chest. CLINICAL INDICATION: Chest pain. TECHNIQUE: Single frontal view of the chest was obtained COMPARISON: 02/25/2016. FINDINGS: Cardiomegaly. The lungs are clear. There is no pleural effusion or pneumothorax. IMPRESSION: No acute disease. RPTAT: [facility] Physician Clarence Date Time Electronically viewed and signed by Antonio Pickard Physician on 04/19/2016 18:13 RS/
[2016-04-19 18:18] LABS: TROPONIN-I 0.016 ng/ml (0.00-0.12)
[2016-04-19] MEDS ORDERED: ACETAMINOPHEN 325 MG TAB PO PRN ×2 (19:00→23:30)
[2016-04-19] MEDS ORDERED: ONDANSETRON 4 MG INJ IV PRN ×2 (19:00→23:30)
[2016-04-19 20:54] VITALS: TEMP 98.2
[2016-04-19 21:47] VITALS: PULSE 62
[2016-04-19 22:16] VITALS: Ht 142.2 cm; Wt 54.9 kg
[2016-04-19] MEDS ORDERED: NACL 0.9% 3 ML SYG IV SCH (23:30)
[2016-04-19] MEDS ORDERED: morphine 2 MG INJ IV PRN (23:30)
[2016-04-19] MEDS ORDERED: CLONIDINE 0.1 MG/24 HR PATCH TRANSDERM SCH (23:30)
[2016-04-19 23:40] VITALS: PULSE 63
[2016-04-19] MEDS: LOSARTAN 50 MG TAB PO SCH (23:58)
[2016-04-20] VITALS (12 sets, daily range): BP systolic 127–195; BP diastolic 55–91; PULSE 59–69; RESP 16–65
[2016-04-20 00:35] LABS: CK-MB 0.62 ng/ml (0.0-2.4)
[2016-04-20 00:39] LABS: TROPONIN-I 0.02 ng/ml (0.00-0.12)
[2016-04-20] MEDS: LEVOTHYROXINE 75 MCG TAB PO SCH (05:54)
[2016-04-20] MEDS ORDERED: FAMOTIDINE 20 MG INJ IV SCH ×2 (09:00)
[2016-04-20] MEDS ORDERED: MOMETASONE FORMOTEROL INH SCH (09:00)
[2016-04-20 09:19] LABS: ADD SCAN DIFF NO
[2016-04-20 09:23] LABS: BASOPHILS % 0.4 % (0.0-2.0); EOSINOPHILS # 0.2 10^3/ul (0.0-0.5); EOSINOPHILS % 4.4 % (0.0-7.0); HEMATOCRIT 32.7 % (37.0-47.0); HEMOGLOBIN 10.6 g/dl (12.0-16.0); LYMPHOCYTES # 1.8 10^3/ul (0.8-2.9); LYMPHOCYTES % 36.8 % (15.0-51.0); MEAN CORPUSCULAR HEMOGLOBIN 29.2 pg (29.0-33.0); MEAN CORPUSCULAR HGB CONC 32.4 g/dl (32.0-37.0); MEAN CORPUSCULAR VOLUME 90.1 fl (82.0-101.0); MEAN PLATELET VOLUME 10.4 fl (7.4-10.4); MONOCYTE # 0.4 10^3/ul (0.3-0.9); MONOCYTES % 7.7 % (0.0-11.0); NEUTROPHIL # 2.5 10^3/ul (1.6-7.5); NEUTROPHILS % 50.5 % (39.0-77.0); PLATELET COUNT 257 10^3/UL (140-415); RED BLOOD COUNT 3.63 10^6/ul (4.20-5.40); RED CELL DISTRIBUTION WIDTH 13.3 % (11.5-14.5)
[2016-04-20 09:43] LABS: ALBUMIN 3.9 g/dl (3.3-4.9)
[2016-04-20 09:44] LABS: POTASSIUM 4.3 mmol/L (3.5-5.1)
[2016-04-20 09:46] LABS: ALBUMIN/GLOBULIN RATIO 1.08; BILIRUBIN,INDIRECT 0.2 mg/dl (0-1.1); BILIRUBIN,TOTAL 0.2 mg/dl (0.2-1.3); CREATININE 0.83 mg/dl (0.44-1.00); TOTAL PROTEIN 7.5 g/dl (6.1-8.1)
[2016-04-20] MEDS: SALMETEROL/FLUTICASONE 250/50 INHA INH SCH ×2 (09:46→20:27)
[2016-04-20 09:47] LABS: CALCIUM 9.5 mg/dl (8.4-10.2); CHOL/HDL RATIO 2.7 RATIO
[2016-04-20] MEDS: DOCUSATE SODIUM 100 MG CAP PO SCH ×2 (09:47→20:26)
[2016-04-20] MEDS: ASPIRIN 81 MG TAB PO SCH (09:47)
[2016-04-20] MEDS: LOSARTAN 50 MG TAB PO SCH (09:48)
[2016-04-20] MEDS: ENOXAPARIN 30 MG/0.3 ML SYG SC SCH (09:50)
[2016-04-20 09:51] LABS: CK-MB 0.4 ng/ml (0.0-2.4)
[2016-04-20 09:54] LABS: TROPONIN-I 0.018 ng/ml (0.00-0.12)
--- NOTE | 2016-04-20 13:08 | HP ---
DATE OF ADMISSION: 04/19/2016 CHIEF COMPLAINT: Chest pain. Patient was sent by her PMD for evaluation to the emergency room. HISTORY OF PRESENT ILLNESS: The patient is an 85-year-old female with history of coronary artery d isease, congestive heart failure, hypertension, hyperlipidemia, hypothyroidism and history of chroni c obstructive pulmonary disease. Patient was referred from her primary physician's office, Dr. Kush zarate, for complaints of chest pain. Patient developed chest pain at home day before yesterday an d stated that she has mild chest pain for 1 month. The patient has a history of intermittent episod es of sharp and nonradiating, mild to moderate chest pain that got worse over the last couple of we. Patient denies any shortness of breath, denies orthopnea. Denies dyspnea. The patient denies any nausea, vomiting. Denies fever. After conversation with the patient's daughter at bedside, alise kearney sometimes had indigestion after food ingestion and she usually takes Mylanta. Last episode was 1 week ago. Patient denies any diarrhea. Denies any extremity swelling. The patient underwent a 12-lead EKG which reveals sinus rhythm with no acute ST segment elevation or depression. Patient un derwent chest x-ray which revealed cardiomegaly, no acute disease. The patient's troponin was negat kane on admission. The patient was given some aspirin, Tylenol, Zofran and admitted for further eval uation and management on telemetry floor. The patient had a previous history of admission for synco pal episodes. Patient is admitted for further evaluation and management. PAST MEDICAL HISTORY: Per HPI. PAST SURGICAL HISTORY: Patient denies having any surgeries in the past. FAMILY HISTORY: Noncontributory. SOCIAL HISTORY: Patient lives at home with her family, patient denies any tobacco use, denies any i llicit drug use. Denies any alcohol use. ALLERGIES: THE PATIENT IS ALLERGIC TO PENICILLIN. HOME MEDICATIONS: 1. Catapres patch. 2. Colace. 3. Cozaar 4. Simvastatin. 5. Dulera. REVIEW OF SYSTEMS: A 12-point review of systems is negative unless what mentioned in the HPI. PHYSICAL ASSESSMENT: GENERAL: Well-developed, well-nourished elderly female in no acute distress. VITAL SIGNS: Temperature 97.9, pulse is 78, blood pressure is 130/58, respiratory rate 18, oxygen s aturation 97% on room air. HEENT: Head is atraumatic, normocephalic. Pupils equal, round, reactive to light and accommodation . Oral mucosa is pink and moist. NECK: Supple, no cervical lymphadenopathy, no thyromegaly. CHEST: Lungs clear bilaterally. There is no rhonchi, wheezes, rales noted. CARDIOVASCULAR: Normal S1, S2. No murmurs, gallops, clicks, rubs noted. ABDOMEN: Protuberant, soft, nondistended, nontender. There is no guarding, no rebound tenderness. EXTREMITIES: No edema, no clubbing, no cyanosis. Pulses equal bilaterally 2+. SKIN: There is no rash, petechiae noted. NEUROLOGIC: Patient is awake, alert and oriented x3. No focal deficits noted. Motor strength 5/5 in all extremities. LABORATORY DATA: On admission, CBC: White blood cells 6.5, hemoglobin 10.7, hematocrit 33.2, plate lets 249. Chemistry: Sodium 142, potassium 4.5, chloride 101, carbon dioxide 29, anion gap 17, BUN is 21, creatinine 0.86, glucose 82, AST 34, ALT is 32, alkaline phosphatase is 92. ASSESSMENT AND PLAN: 1. Chest pain, rule out acute coronary syndrome. We obtain cardiac enzymes x3. Dr. Shelley will be following the patient in cardiology consultation. Continue to monitor patient on telemetry floor. Continue aspirin. 2. Hypertension. Continue clonidine and Cozaar. 3. Chronic obstructive pulmonary disease by history. Continue Advair. 4. Hypothyroidism. We will check TSH and T4. Continue patient on Synthroid. 5. We will continue Lovenox for deep venous thrombosis prophylaxis and Pepcid for peptic ulcer dise ase prophylaxis. Further recommendations based on clinical course. Plan of care discussed with Dr. Ascencio. Dictated By: NICK STEINER [employer] VICE PRESIDENT for MABEL ASCENCIO MD SR/NTS Conf#: [id number] DID#: [id number]
--- NOTE | 2016-04-20 14:44 | CONS ---
Date/Time of Note Date/Time of Note DATE: 04/20/16 TIME: 14:38 Assessment/Plan Assessment/Plan Additional Assessment/Plan Chest pain Mild asthma exacerbation Hypertension Preserved ejection fraction on echocardiogram 2015 -Patient with chest discomfort with lying down and improved with sitting up. Symptoms are exacerbated by coughing. She does complain of increased wheezing over the past few weeks. Serial cardiac enzymes have remained negative, ECG without any significant ischemic abnormalities. Echocardiogram pending. Her symptoms of chest discomfort have improved since admission. Would consider nebulizers for asthma. Consultation Date/Type/Reason Admit Date/Time Apr 19, 2016 at 19:01 Type of Consultation: cv Reason for Consultation Chest pain 1 month Hx of Present Illness This is an 85-year-old female with history of hypertension, asthma who went to see her primary doctor yesterday for evaluation. Patient has been complaining of wheezing, chest pain over the past 2-3 weeks. Chest pain is sharp in nature and worse with lying back. Chest pain resolves with sitting up. There is no exertional chest pain or shortness of breath. She has been using her inhalers more often because of wheezing and cough. Her symptoms of cough and wheezing are worse at nighttime and improved during the daytime. She denies any fevers, chills, dizziness or lightheadedness. She feels better today compared to yesterday in regards to her wheezing and she denies any chest discomfort currently. Chest discomfort at times is also exacerbated by coughing. 12 point review of systems was performed with all pertinent positives and negatives mentioned above and all else is negative Past Medical History Asthma Thyroid dysfunction Medical History: hypertension Family History Significant Family History: no pertinent family hx Social History Alcohol Use: none Smoking Status: Never smoker Other Social History Lives at home with family Exam/Review of Systems Vital Signs Vitals Vital Signs Date Time Temp Pulse Resp B/P Pulse Ox O2 Delivery O2 Flow Rate FiO2 04/20/16 12:08 60 04/20/16 10:56 97.9 18 130/58 97 04/19/16 20:54 Room Air 04/19/16 17:51 2 Intake and Output 04/19/16 04/19/16 04/20/16 15:00 23:00 07:00 Intake Total 800 ml Balance 800 ml Exam Sitting in chair, no apparent distress Constitutional: alert, obese, oriented Head: normocephalic Neck: supple Respiratory: other (Coarse breath sounds bilaterally, no wheezing) Cardiovascular: other (S1-S2 heard), regular rate and rhythm Gastrointestinal: bowel sounds, non-tender, other (No guarding), soft Extremities: edema (Trace edema, no cyanosis) Results Result Diagram: 04/20/16 0847 04/20/16 0847 Results 24 hrs Laboratory Tests Test 04/19/16 17:49 04/19/16 23:31 04/20/16 08:47 Activated Partial Thromboplast Time 24.6 L Alanine Aminotransferase (ALT/SGPT) 32 35 Albumin 4.3 3.9 Albumin/Globulin Ratio 1.53 1.08 Alkaline Phosphatase 92 75 Anion Gap 17 H 15 Aspartate Amino Transf (AST/SGOT) 34 41 Basophils # 0.0 0.0 Basophils % 0.5 0.4 Blood Urea Nitrogen 21 H 19 Calcium Level 9.2 9.5 Carbon Dioxide Level 29 28 Chloride Level 101 103 Creatinine 0.86 0.83 Direct Bilirubin 0.00 0.00 Eosinophils # 0.2 0.2 Eosinophils % 2.5 4.4 Globulin 2.80 3.60 H Glucose Level 82 91 Hematocrit 33.2 L 32.7 L Hemoglobin 10.7 L 10.6 L INR International Normalized Ratio 1.00 Indirect Bilirubin 0.1 0.2 Lymphocytes # 2.5 1.8 Lymphocytes % 39.0 36.8 Mean Corpuscular Hemoglobin 29.6 29.2 Mean Corpuscular Hemoglobin Concent 32.2 32.4 Mean Corpuscular Volume 92.0 90.1 Mean Platelet Volume 10.1 10.4 Monocytes # 0.4 0.4 Monocytes % 6.0 7.7 Neutrophils # 3.4 2.5 Neutrophils % 51.8 50.5 Nucleated Red Blood Cells # 0.0 0.0 Nucleated Red Blood Cells % 0.0 0.0 Platelet Count 249 257 Potassium Level 4.5 4.3 Prothrombin Time 13.2 Prothrombin Time Ratio 1.0 Red Blood Count 3.61 L 3.63 L Red Cell Distribution Width 13.3 13.3 Sodium Level 142 142 Total Bilirubin 0.1 L 0.2 Total Protein 7.1 7.5 Troponin I 0.016 0.020 0.018 White Blood Count 6.5 # 5.0 # Creatine Kinase 79 70 Creatine Kinase Index 0.8 0.6 Creatinine Kinase MB (Mass) 0.62 0.40 Cholesterol Level 151 Cholesterol/HDL Ratio 2.7 HDL Cholesterol 55 LDL Cholesterol, Calculated 76 Triglycerides Level 100 Medications Medications Current Medications Ondansetron HCl (Zofran Inj) 4 mg Q6H PRN IV NAUSEA AND/OR VOMITING; Start at 23:30 Aspirin (Aspirin) 81 mg DAILY PO Last administered on 04/20/16 09:47; Admin Dose 81 MG; Start 04/20/16 at 09:00 Acetaminophen (Tylenol Tab) 650 mg Q6H PRN PO PAIN LEVEL 1-3 OR FEVER; Start at 23:30 Morphine Sulfate (morphine) 2 mg Q4H PRN IV PAIN LEVEL 7-10; Start 04/19/16 at 23:30 Enoxaparin Sodium (Lovenox) 30 mg DAILY SC Last administered on 04/20/16 09:50 ; Admin Dose 30 MG; Start 04/20/16 at 09:00 Clonidine HCl (Catapres-Tts 1 Patch) 1 patch Q7D TRANSDERM ; Start 04/19/16 at 23:30 Clonidine (Catapres) 0.1 mg Q8 PO Last administered on 04/20/16 14:20; Admin Dose 0.1 MG; Start 04/20/16 at 00:00 Docusate Sodium (Colace) 100 mg BID PO Last administered on 04/20/16 09:47; Admin Dose 100 MG; Start 04/20/16 at 09:00 Levothyroxine Sodium (Synthroid) 75 mcg DAILY@06 PO Last administered on 05:54; Admin Dose 75 MCG; Start 04/20/16 at 06:00 Losartan Potassium (Cozaar) 100 mg DAILY PO Last administered on 04/20/16 09: 48; Admin Dose 100 MG; Start 04/20/16 at 00:00 Famotidine (Pepcid Iv) 20 mg DAILY IV Last administered on 04/20/16 09:47; Admin Dose 20 MG; Start 04/20/16 at 09:00 Atorvastatin Calcium (Lipitor) 10 mg DAILY@21 PO ; Start 04/20/16 at 21:00 Salmeterol Xinafoate/ Fluticasone (Advair 250/50 Diskus) 1 inh BID INH Last administered on 04/20/16 09:46; Admin Dose 1 INH; Start 04/20/16 at 09:00 Procedures Procedures Sinus rhythm at 63 bpm, QRS 82 ms, no significant ischemic STT wave abnormalities Joby Shelley DO Apr 20, 2016 14:44
--- NOTE | 2016-04-20 15:51 | RADRPT ---
Vent Rate: 63 bpm RR Interval: 0 msec IA Interval: 182 msec QRS Duration: 82 msec QT Interval: 384 msec QTC Interval: 392 msec P-R-T [place]: 57 - 6 - 77 degrees Sinus rhythm with fusion complexes Otherwise normal ECG Electronically Signed By: Bib Beasley [id number]
[2016-04-20] MEDS ORDERED: AL HYDROX/MG HYDROX/SIMETH 30 ML CUP PO PRN (20:00)
[2016-04-20] MEDS ORDERED: NON-FORMULARY/PATIENT OWN MED (Simvastatin 20 MG) PO SCH (21:00)
[2016-04-20] MEDS ORDERED: ATORVASTATIN 10 MG TAB PO SCH (21:00)
[2016-04-21] VITALS (9 sets, daily range): BP systolic 116–143; BP diastolic 55–75; PULSE 55–65; RESP 18
[2016-04-21] MEDS: LEVOTHYROXINE 75 MCG TAB PO SCH (05:59)
[2016-04-21 07:32] LABS: ADD SCAN DIFF NO
[2016-04-21 07:40] LABS: BASOPHILS % 0.9 % (0.0-2.0); EOSINOPHILS # 0.2 10^3/ul (0.0-0.5); EOSINOPHILS % 4.1 % (0.0-7.0); HEMATOCRIT 30.6 % (37.0-47.0); LYMPHOCYTES # 1.5 10^3/ul (0.8-2.9); LYMPHOCYTES % 33.3 % (15.0-51.0); MEAN CORPUSCULAR HEMOGLOBIN 29.2 pg (29.0-33.0); MEAN CORPUSCULAR HGB CONC 32.7 g/dl (32.0-37.0); MEAN CORPUSCULAR VOLUME 89.5 fl (82.0-101.0); MEAN PLATELET VOLUME 10.2 fl (7.4-10.4); MONOCYTE # 0.4 10^3/ul (0.3-0.9); NEUTROPHIL # 2.4 10^3/ul (1.6-7.5); NEUTROPHILS % 53.7 % (39.0-77.0); PLATELET COUNT 228 10^3/UL (140-415); RED BLOOD COUNT 3.42 10^6/ul (4.20-5.40); RED CELL DISTRIBUTION WIDTH 13.3 % (11.5-14.5); WHITE BLOOD COUNT 4.4 10^3/ul (4.8-10.8)
[2016-04-21 07:50] LABS: POTASSIUM 4.2 mmol/L (3.5-5.1)
[2016-04-21 07:53] LABS: CREATININE 0.86 mg/dl (0.44-1.00)
[2016-04-21 08:20] LABS: THYROID STIMULATING HORMONE 0.912 MIU/L (0.465-4.680)
[2016-04-21] MEDS: LOSARTAN 50 MG TAB PO SCH (08:54)
[2016-04-21] MEDS: DOCUSATE SODIUM 100 MG CAP PO SCH (08:54)
[2016-04-21] MEDS: ASPIRIN 81 MG TAB PO SCH (08:54)
[2016-04-21] MEDS ORDERED: FAMOTIDINE 20 MG TAB PO SCH (09:00)
[2016-04-21] MEDS: ENOXAPARIN 30 MG/0.3 ML SYG SC SCH (09:04)
[2016-04-21] MEDS: SALMETEROL/FLUTICASONE 250/50 INHA INH SCH (09:05)
--- NOTE | 2016-04-21 11:21 | RADRPT ---
Echocardiogram Report Patient Name: ALESSIO MORALES Gender: Female Date: 1930 Study Date: 20-Apr-2016 Radiation Protection Technician: Mathew Heller [facility] Physician: JOBY SHELLEY Quality: Technically Difficult Study Procedures: Transthoracic echocardiogram with complete 2D, M-Mode, and doppler examination. Indications: Chest Pain. Shortness of breath. 2D/M Mode Doppler Measurement Value Normal Ranges Measurement Value Normal Ranges LVIDd 2D 3.5 3.5 - 5.6 cm AV Peak Stu 1.5 m/sec LVIDs 2D 2.5 2.1 - 4.1 cm AV Peak PG 9.2 mmHg LVPWd 2D 1.1 0.6 - 1.1 cm LVOT Peak Stu 1.2 m/sec IVSd 2D 1.1 0.6 - 1.1 cm LVOT Peak PG 6.0 mmHg AoR Diam 2D 2.6 2.0 - 3.7 cm MV E Peak Stu 0.9 m/sec EDV 2D 50.4 cm3 MV A Peak Stu 1.2 m/sec ESV 2D 16.2 cm3 MV E/A 0.7 LA Dimen 2D 3.2 2.3 - 4.0 cm MV Decel Time 220 msec MV Decel [place] 4 MV E/A 0.7 TR Peak Stu 2.8 m/sec TR Peak PG 30.7 mmHg RVSP 34.0 mmHg Findings Left Ventricle: Normal left ventricular systolic function. Normal left ventricular cavity size. Normal left ventricular wall thickness. Ejection fraction is visually estimated at 65 %. Tissue Doppler/Mitral Doppler indices are consistent with impaired relaxation (Stage I diastolic dysfunction). Right Ventricle: Normal right ventricular size. Normal right ventricular systolic function. Left Atrium: The left atrium is normal in size. Right Atrium: The right atrium is normal in size. Mitral Valve: Mild mitral annular calcification. Trace mitral regurgitation. Aortic Valve: Normal appearance of the aortic valve. No significant aortic stenosis or insufficiency. Tricuspid Valve: Normal appearance and function of the tricuspid valve with trace physiologic regurgitation. Estimated peak PA systolic pressure 34 mmHg. Pulmonic Valve: Normal pulmonic valve appearance. Pericardium: Trivial pericardial effusion. Aorta: Normal aortic root. IVC: Normal size and normal respiratory collapse consistent with normal right atrial pressure. Conclusions 1.Normal left ventricular systolic function. Normal left ventricular cavity size. Normal left ventricular wall thickness. Ejection fraction is visually estimated at 65 %. Tissue Doppler/Mitral Doppler indices are consistent with impaired relaxation (Stage I diastolic dysfunction). 2.Normal right ventricular size. Normal right ventricular systolic function. 3.The left atrium is normal in size. 4.The right atrium is normal in size. 5.No significant valvular stenosis or regurgitation seen. 6.Trivial pericardial effusion. Electronically Signed By: Joby Shelley 21-Apr-2016 11:20:40 -0800 Patient Name: ALESSIO MORALES Study Date: 20-Apr-2016 [id number]
[2016-04-21] MEDS ORDERED: ALBUTEROL/IPRATROPIUM (NEB) 3 ML AMP HHN PRN (11:30)
[2016-04-21] MEDS ORDERED: ALBUTEROL/IPRATROPIUM (NEB) 3 ML AMP HHN SCH (14:00)
--- NOTE | 2016-04-21 14:14 | CONS ---
Date/Time of Note Date/Time of Note DATE: 04/21/16 TIME: 14:13 Assessment/Plan Assessment/Plan Additional Assessment/Plan Positional chest pain, resolved Mild asthma exacerbation Hypertension Preserved ejection fraction -Patient continues to improve. Echocardiogram with preserved ejection fraction. Denies further chest pain and wheezing has improved. No further inpatient cardiac workup needed at the current time. Consultation Date/Type/Reason Admit Date/Time Apr 21, 2016 at 11:27 Initial Consult Date Type of Consultation: cv 24 HR Interval Summary Free Text/Dictation Patient feeling much better, denies shortness of breath, chest pain or palpitations Exam/Review of Systems Vital Signs Vitals Vital Signs Date Time Temp Pulse Resp B/P Pulse Ox O2 Delivery O2 Flow Rate FiO2 04/21/16 12:09 65 04/21/16 10:59 98.2 18 119/58 97 04/19/16 20:54 Room Air 04/19/16 17:51 2 Intake and Output 04/20/16 04/20/16 04/21/16 15:00 23:00 07:00 Intake Total 700 ml 550 ml Balance 700 ml 550 ml Exam Sitting in chair, eating lunch Constitutional: alert, obese, oriented Head: normocephalic Neck: supple Respiratory: other (Coarse breath sounds bilaterally, no wheezing) Cardiovascular: other (S1-S2 heard), regular rate and rhythm Gastrointestinal: bowel sounds, non-tender, other (No guarding), soft Extremities: other (No edema) Results Result Diagram: 04/21/16 0700 04/21/16 0700 Results 24 hrs Laboratory Tests Test 04/21/16 07:00 Anion Gap 15 Basophils # 0.0 Basophils % 0.9 Blood Urea Nitrogen 20 Calcium Level 9.0 Carbon Dioxide Level 28 Chloride Level 101 Creatinine 0.86 Eosinophils # 0.2 Eosinophils % 4.1 Free Thyroxine 1.68 Glucose Level 96 Hematocrit 30.6 L Hemoglobin 10.0 L Lymphocytes # 1.5 Lymphocytes % 33.3 Mean Corpuscular Hemoglobin 29.2 Mean Corpuscular Hemoglobin Concent 32.7 Mean Corpuscular Volume 89.5 Mean Platelet Volume 10.2 Monocytes # 0.4 Monocytes % 8.0 Neutrophils # 2.4 Neutrophils % 53.7 Nucleated Red Blood Cells # 0.0 Nucleated Red Blood Cells % 0.0 Platelet Count 228 Potassium Level 4.2 Red Blood Count 3.42 L Red Cell Distribution Width 13.3 Sodium Level 140 Thyroid Stimulating Hormone (TSH) 0.912 White Blood Count 4.4 L Medications Medications Current Medications Ondansetron HCl (Zofran Inj) 4 mg Q6H PRN IV NAUSEA AND/OR VOMITING; Start at 23:30 Aspirin (Aspirin) 81 mg DAILY PO Last administered on 04/21/16 08:54; Admin Dose 81 MG; Start 04/20/16 at 09:00 Acetaminophen (Tylenol Tab) 650 mg Q6H PRN PO PAIN LEVEL 1-3 OR FEVER Last administered on 04/20/16 18:04; Admin Dose 650 MG; Start 04/19/16 at 23:30 Morphine Sulfate (morphine) 2 mg Q4H PRN IV PAIN LEVEL 7-10; Start 04/19/16 at 23:30 Enoxaparin Sodium (Lovenox) 30 mg DAILY SC Last administered on 04/21/16 09:04 ; Admin Dose 30 MG; Start 04/20/16 at 09:00 Clonidine HCl (Catapres-Tts 1 Patch) 1 patch Q7D TRANSDERM ; Start 04/19/16 at 23:30 Clonidine (Catapres) 0.1 mg Q8 PO Last administered on 04/21/16 06:00; Admin Dose 0.1 MG; Start 04/20/16 at 00:00 Docusate Sodium (Colace) 100 mg BID PO Last administered on 04/21/16 08:54; Admin Dose 100 MG; Start 04/20/16 at 09:00 Levothyroxine Sodium (Synthroid) 75 mcg DAILY@06 PO Last administered on 05:59; Admin Dose 75 MCG; Start 04/20/16 at 06:00 Losartan Potassium (Cozaar) 100 mg DAILY PO Last administered on 04/21/16 08:54 ; Admin Dose 100 MG; Start 04/20/16 at 00:00 Atorvastatin Calcium (Lipitor) 10 mg DAILY@21 PO Last administered on 20:26; Admin Dose 10 MG; Start 04/20/16 at 21:00 Salmeterol Xinafoate/ Fluticasone (Advair 250/50 Diskus) 1 inh BID INH Last administered on 04/21/16 09:05; Admin Dose 1 INH; Start 04/20/16 at 09:00 Famotidine (Pepcid) 20 mg DAILY PO Last administered on 04/21/16 08:54; Admin Dose 20 MG; Start 04/21/16 at 09:00 Al Hydrox/Mg Hydrox/Simethicone (Mag-Al Plus) 30 ml Q6H PRN PO GASTROINTESTINAL UPSET Last administered on 04/20/16 20:27; Admin Dose 30 ML; Start 04/20/16 at 20:00 Joby Shelley DO Apr 21, 2016 14:14
== END 2016-04-21 18:15 | disposition home or self-care (01) | DRG 203 ==
LOC: E/R 13:42 → TEL 19:01 → OBSVTOIN 04-21 11:27
PROVIDERS: ADMIT Internal Medicine; ATTEND Internal Medicine
DX: J45.901 Unspecified asthma with (acute) exacerbation (principal); J44.9 Chronic obstructive pulmonary disease, unspecified; R07.9 Chest pain, unspecified; I25.10 Atherosclerotic heart disease of native coronary artery without angina pectoris; I10 Essential (primary) hypertension; E03.9 Hypothyroidism, unspecified; E78.5 Hyperlipidemia, unspecified; Z88.0 Allergy status to penicillin
CPT/HCPCS: 36415; 71010; 80048; 80053; 80061; 82550; 82553; 84439; 84443; 84484; 85025; 85610; 85730; 93005; 93306; 99217; G0378; J1650